=== PATIENT | female | born 1960 | race Caucasian/White ===

== ENCOUNTER → 2018-07-19 | Outpatient (CLI) | payer OTHER ==
[~2018-07-19] MED LIST: ARIP30 PO; ASCO500 PO; CALCAVITDA PO; CYCL10 PO; DULO30 PO; FISH1000 PO; HYDACE5 PO; LOXA10 PO; MULVITA PO; OXYACE7.5T PO; QUET100 PO; TETR250 PO; TOCO1000 PO; TRAZ100 PO; TRIHEXYPHENIDYL PO; VENL75ER PO; [UNRECOGNIZED DRUG - OTHER]; [UNRECOGNIZED DRUG - REMARK]
[2018-07-19 13:26] LABS: Source, Urine Clean Catch
[2018-07-19 16:39] LABS: Bilirubin, Urine Neg (Neg); Blood, Urine Neg (Neg); Glucose Qualitative, Urine Neg (Neg); Ketones, Urine Neg (Neg); Leukocyte Esterase, Urine Neg (Neg); Nitrite, Urine Neg (Neg); Protein, Urine Neg (Neg); Specific Gravity, Urine 1.005 (1.003-1.022); Urobilinogen, Urine NORM (Normal); pH, Urine 6.5 (5.0-8.0)
[2018-07-19 17:02] LABS: Appearance, Urine Clear (Clear); Color, Urine Yellow (P-Yellow)
== END | disposition home or self-care (01) ==
LOC: LAB 13:20 → LAB SHORT 13:20
PROVIDERS: Family Medicine
DX: N39.46 Mixed incontinence (principal)
CPT/HCPCS: 81003

== ENCOUNTER → 2018-10-09 | Outpatient (CLI) | payer OTHER ==
[2018-10-10 15:07] LABS: HPV 16 Negative (Negative); HPV 18 Negative (Negative); HPV OTHER HR TYPES Positive (Negative)
== END ==
LOC: LAB 10:49 → LAB SHORT 10:49
PROVIDERS: Obstetrics & Gynecology
DX: Z01.419 Encounter for gynecological examination (general) (routine) without abnormal findings (principal)
CPT/HCPCS: 87624; 87625; G0123

== ENCOUNTER → 2020-03-09 | Outpatient (CLI) | payer OTHER ==
[2020-03-10 16:10] LABS: HPV 16 Negative (Negative); HPV 18 Negative (Negative); HPV OTHER HR TYPES Positive (Negative)
== END | disposition home or self-care (01) ==
LOC: LAB SHORT 11:50 → LAB 11:50
PROVIDERS: Obstetrics & Gynecology
DX: Z01.419 Encounter for gynecological examination (general) (routine) without abnormal findings (principal)
CPT/HCPCS: 87624; 87625; G0123

== ENCOUNTER → 2020-04-14 | Outpatient (CLI) | payer OTHER | END | disposition home or self-care (01) | LOC: LAB 08:23 → LAB SHORT 08:23 | DX: R87.619 Unspecified abnormal cytological findings in specimens from cervix uteri (principal) | CPT/HCPCS: 88305 ==

== ENCOUNTER → 2020-04-22 | Outpatient (CLI) | payer OTHER | END | disposition home or self-care (01) | LOC: LAB SHORT 07:35 → PLD 07:35 | DX: R87.619 Unspecified abnormal cytological findings in specimens from cervix uteri (principal) | CPT/HCPCS: 88305 ==

== ENCOUNTER → 2021-03-29 | Outpatient (CLI) | payer OTHER ==
[2021-03-30 13:10] LABS: HPV 16 Negative (Negative); HPV 18 Negative (Negative); HPV OTHER HR TYPES Positive (Negative)
== END | disposition home or self-care (01) ==
LOC: LAB SHORT 11:59 → LAB 11:59
PROVIDERS: Obstetrics & Gynecology
DX: Z01.419 Encounter for gynecological examination (general) (routine) without abnormal findings (principal)
CPT/HCPCS: 87624; G0123

== ENCOUNTER 2021-09-20 12:03 | Day surgery (SDC) | payer OTHER ==
[~2021-09-20] VITALS: Ht 167.6 cm; Wt 74.0 kg
[2021-09-20] MEDS ORDERED: Prozac20 MG PO (12:19)
[2021-09-20] MEDS ORDERED: ALBU90OI6 INH (12:20)
[2021-09-20] MEDS ORDERED: OXYB5 PO (12:20)
--- NOTE | 2021-09-20 13:54 | NUR ---
09/20/21 1354 Andrae Freeman 0.15ML OF EPI 1MG/ML ADDED TO 30ML OF BUPIVICAINE 0.5% TO CREATE A SOLUTION OF BUPIVICAINE 0.5% WITH EPI 1:200,000.
== END 2021-09-20 15:13 | disposition home or self-care (01) ==
LOC: ORSCSDS 12:03
PROVIDERS: Orthopaedic Surgery
PROC: 0LB50ZZ Excision of Right Lower Arm and Wrist Tendon, Open Approach (ICD-10-PCS; principal; 2021-09-20 13:30)
PROC: 01N50ZZ Release Median Nerve, Open Approach (ICD-10-PCS; principal; 2021-09-20 13:30)
DX: G56.01 Carpal tunnel syndrome, right upper limb (principal); M67.431 Ganglion, right wrist; J44.9 Chronic obstructive pulmonary disease, unspecified; F32.A Depression, unspecified; F17.210 Nicotine dependence, cigarettes, uncomplicated; Z79.899 Other long term (current) drug therapy
CPT/HCPCS: 88304; J0171; J0330; J0690; J2405; J2704; J3010

== ENCOUNTER → 2022-05-19 | Outpatient (CLI) | payer OTHER ==
[~2022-05-19] MED LIST changes: +ALBU90OI6 INH; +OXYB5 PO; +Prozac20 MG PO
[2022-05-23 12:07] LABS: HPV 16 Negative (Negative); HPV 18 Negative (Negative); HPV OTHER HR TYPES Positive (Negative)
== END ==
LOC: LAB SHORT 11:38 → LAB 11:38
PROVIDERS: Obstetrics & Gynecology
DX: R87.810 Cervical high risk human papillomavirus (HPV) DNA test positive (principal)
CPT/HCPCS: 87624; 87625; G0123

== ENCOUNTER → 2022-07-07 | Outpatient (CLI) | payer OTHER | END | disposition home or self-care (01) | LOC: LAB SHORT 15:14 | DX: R87.614 Cytologic evidence of malignancy on smear of cervix (principal) | CPT/HCPCS: 88305 ==

== ENCOUNTER → 2023-09-11 | Outpatient (CLI) | payer OTHER ==
[~2023-09-11] MED LIST changes: +ANORO ELLIPTA1 EAC1 IH
[2023-09-14 11:44] LABS: Stool Occult Bld Immuno 1 Negative (NEGATIVE)
[2023-09-15 11:53] LABS: FAT, FECAL - NEUTRAL Normal (Normal); FAT, FECAL - SPLIT Normal (Normal)
== END ==
LOC: LAB 14:30 → LAB SHORT 14:30
PROVIDERS: Family Medicine
DX: R63.4 Abnormal weight loss (principal); R79.82 Elevated C-reactive protein (CRP)
CPT/HCPCS: 82705; G0328

== ENCOUNTER → 2024-03-11 | Outpatient (CLI) | payer OTHER ==
[2024-03-21 14:47] LABS: HPV HIGH RISK BY TMA Not Detected; HPV SOURCE Cervical
== END ==
LOC: LAB 17:14 → LAB SHORT 17:14
PROVIDERS: Obstetrics & Gynecology
DX: Z01.419 Encounter for gynecological examination (general) (routine) without abnormal findings (principal)
CPT/HCPCS: 87624; G0123

== ENCOUNTER 2025-03-08 13:39 | Inpatient (IN) | payer MEDICARE, OTHER ==
[~2025-03-08] VITALS: Ht 167.6 cm; Wt 52.0 kg
[2025-03-08] MEDS ORDERED: Vitamin D1000 UNI1 PO (14:41)
[2025-03-08 15:47] LABS: BASOPHILS ABSOLUTE AUTO 0.07 K/mm3 (0.00-0.23); BASOPHILS PERCENT AUTO 1 % (0-2); EOSINOPHILS ABSOLUTE AUTO 0.12 K/mm3 (0.00-0.68); EOSINOPHILS PERCENT AUTO 1 % (0-6); Hematocrit 38.0 % (33.0-51.0); Hemoglobin 12.9 g/dL (11.5-16.0); IMMATURE GRAN ABSOLUTE AUTO 0.03 K/mm3 (0.00-0.10); IMMATURE GRAN PERCENT AUTO 0 % (0-1); LYMPHOCYTES ABSOLUTE AUTO 1.76 K/mm3 (0.84-5.20); LYMPHOCYTES PERCENT AUTO 19 % (21-46); MONOCYTES ABSOLUTE AUTO 0.69 K/mm3 (0.16-1.47); MONOCYTES PERCENT AUTO 8 % (4-13); Mean Corpuscular HGB Conc 33.9 g/dL (31.5-36.5); Mean Corpuscular Volume 95 fL (80-100); NEUTROPHILS ABSOLUTE AUTO 6.40 K/mm3 (1.96-9.15); NEUTROPHILS PERCENT AUTO 71 % (41-73); NRBC ABSOLUTE 0.00 K/mm3 (0.00-0.02); NRBC Auto 0.0 /100 WBC (0.0-0.2); Platelet Count 285 K/mm3 (150-400); RDW Coefficient Variation 13.1 % (11.7-14.2); RDW Standard Deviation 45.2 fL (35.1-46.3)
[2025-03-08 16:02] LABS: Alanine Aminotransfer (ALT/SGP 30.0 U/L (12-78); Albumin, Blood 3.4 g/dL (3.4-5.0); Albumin/Globulin Ratio 1.0 (0.8-1.8); Anion Gap 4.0 mmol/L (3-11); Aspartate Aminotrans (AST/SGOT 23.0 U/L (12-37); Bilirubin, Total 0.4 mg/dL (0.1-1.0); Blood Urea Nitrogen 9.0 mg/dL (8-24); CO2, Blood 30.0 mmol/L (21-32); Calcium, Blood 8.9 mg/dL (8.5-10.1); Chloride, Blood 106.0 mmol/L (98-108); Creatinine, Blood 0.77 mg/dL (0.40-1.00); Globulin, Blood 3.4 g/dL (2.2-4.0); Glucose, Blood 96.0 mg/dL (70-99); Potassium, Blood 3.9 mmol/L (3.5-5.5); Sodium, Blood 136.0 mmol/L (136-145); Total Protein, Blood 6.8 g/dL (6.4-8.2)
[2025-03-08] MEDS ORDERED: Dexamethasone Sod Phos 10 MG/ML 1ML VIAL IV ONE (19:35)
[2025-03-08] MEDS ORDERED: Magnesium Hydroxide Conc 10 ML UDC PO PRN (20:30)
[2025-03-08] MEDS ORDERED: Albuterol HFA200 ACT/6.7 GM INH INH PRN (20:50)
[2025-03-08] MEDS ORDERED: Ipratropium/Albuterol SulF 2.5-0.5MG/3 ML Amp INH SCH (20:50)
[2025-03-08] MEDS ORDERED: PREG50 PO (20:52)
[2025-03-08] MEDS ORDERED: Trihexyphenidyl5 MG PO (20:53)
[2025-03-08] MEDS ORDERED: TRAM50 PO (20:55)
[2025-03-08] MEDS ORDERED: Cholecalciferol 1000 Unit Tablet (=25MCG) PO SCH (21:00)
[2025-03-08] MEDS ORDERED: Lactobacil 2-S.Thermo-Bifido 1 1 Cap PO SCH (21:00)
[2025-03-08] MEDS ORDERED: Trihexyphenidyl HCL 2 MG Tab PO SCH (21:00)
[2025-03-08 21:31] VITALS: BP 134/70
[2025-03-09 03:54] VITALS: BP 96/66
[2025-03-09 08:10] VITALS: BP 128/79
[2025-03-09] MEDS ORDERED: Multivitamins 1 Tab PO SCH (09:00)
[2025-03-09] MEDS ORDERED: Omega-3 Acid Ethyl Esters 1,000 MG CAP PO SCH (09:00)
[2025-03-09] MEDS ORDERED: Docusate Sodium/Senna 1 Tab PO PRN (12:15)
--- NOTE | 2025-03-09 13:31 | NUR ---
SHIFT SUMMARY PATIENT RECEIVED MRI, TOLERATED WELL. GENERALIZED WEAKNESS. REPORTS NUMBNESS BILATERAL HANDS AND WEAKNESS IN BILATERAL LEGS. ABLE TO USE BSC WITH 1 ASSIST AND GAIT BELT. A/O X4. VSS. CALL LIGHT IN REACH, ABLE TO MAKE NEEDS KNOWN.
[2025-03-09 15:09] VITALS: BP 100/79
[2025-03-09 19:24] VITALS: BP 109/78
[2025-03-09] MEDS ORDERED: Heparin Sodium,Porcine 5,000 UNIT/0.5 ML SDV SC SCH (21:00)
--- NOTE | 2025-03-10 00:15 | NUR ---
REPORT RECEIVED FROM CINDY AND ASSUMED CARE OF PT AT THIS TIME. PT RESTING W/O S/S DISTRESS AND I AGREE TO HER NOCTE SHIFT ASSESSMENT FINDINGS.
[2025-03-10 02:22] VITALS: BP 102/64
[2025-03-10 05:43] LABS: BASOPHILS ABSOLUTE AUTO 0.03 K/mm3 (0.00-0.23); BASOPHILS PERCENT AUTO 0 % (0-2); EOSINOPHILS ABSOLUTE AUTO 0.02 K/mm3 (0.00-0.68); EOSINOPHILS PERCENT AUTO 0 % (0-6); Hematocrit 39.5 % (33.0-51.0); Hemoglobin 13.8 g/dL (11.5-16.0); IMMATURE GRAN ABSOLUTE AUTO 0.06 K/mm3 (0.00-0.10); IMMATURE GRAN PERCENT AUTO 0 % (0-1); LYMPHOCYTES ABSOLUTE AUTO 0.81 K/mm3 (0.84-5.20); LYMPHOCYTES PERCENT AUTO 6 % (21-46); MONOCYTES ABSOLUTE AUTO 0.55 K/mm3 (0.16-1.47); MONOCYTES PERCENT AUTO 4 % (4-13); Mean Corpuscular HGB Conc 34.9 g/dL (31.5-36.5); Mean Corpuscular Volume 93 fL (80-100); NEUTROPHILS ABSOLUTE AUTO 12.33 K/mm3 (1.96-9.15); NEUTROPHILS PERCENT AUTO 89 % (41-73); NRBC ABSOLUTE 0.00 K/mm3 (0.00-0.02); NRBC Auto 0.0 /100 WBC (0.0-0.2); Platelet Count 300 K/mm3 (150-400); RDW Coefficient Variation 13.2 % (11.7-14.2); RDW Standard Deviation 45.2 fL (35.1-46.3)
[2025-03-10 06:13] LABS: Alanine Aminotransfer (ALT/SGP 27.0 U/L (12-78); Albumin, Blood 3.3 g/dL (3.4-5.0); Albumin/Globulin Ratio 0.9 (0.8-1.8); Anion Gap 10.0 mmol/L (3-11); Aspartate Aminotrans (AST/SGOT 20.0 U/L (12-37); Bilirubin, Total 0.4 mg/dL (0.1-1.0); Blood Urea Nitrogen 13.0 mg/dL (8-24); CO2, Blood 25.0 mmol/L (21-32); Calcium, Blood 8.6 mg/dL (8.5-10.1); Chloride, Blood 107.0 mmol/L (98-108); Creatinine, Blood 0.61 mg/dL (0.40-1.00); Globulin, Blood 3.8 g/dL (2.2-4.0); Glucose, Blood 139.0 mg/dL (70-99); Potassium, Blood 4.1 mmol/L (3.5-5.5); Sodium, Blood 138.0 mmol/L (136-145); Total Protein, Blood 7.1 g/dL (6.4-8.2)
--- NOTE | 2025-03-10 07:14 | NUR ---
SUMMARY: PT A/OX4, CALLS APPROPRIATELY TO SPECIFY NEEDS AND IS PLEASANT AND COOPERATIVE W/CARE. SHE'S UP W/SBA D/T UNSTEADY GAIT AND WEAKNESS. PT REPORTS NUMBNESS/TINGLING TO BUE'S BUT DENIED SENSATION ABNORMALITY TO BLE'S THIS AM. CLINDAMYCIN BEING RECEIVED FOLLOWING RECENT DENTAL WORK. PT WOULD LIKE PHYSICIAN TO DISCUSS MRI RESULTS W/HER AND PLAN OF CARE. DAY RN MADE AWARE. NO ACUTE CHANGES, VSS/AFEBRILE. REPORT PROVIDED TO DAY RN.
[2025-03-10 07:48] VITALS: BP 127/74
[2025-03-10 13:49] VITALS: BP 127/74
[2025-03-10 14:52] VITALS: BP 127/74
--- NOTE | 2025-03-10 15:09 | NUR ---
DISCHARGE/TRANSFER PT TO BE GOING TO [facility] FOR PROCEDURE. PT AOX4, COOPERATIVE, ABLE TO MAKE NEEDS KNOWN. PT IS SBA FOR AMBULATION. ON ROOM AIR. TOLERATING MEDICATION. TRANPORTATION ARRIVED FOR PT SHORTLY AFTER THIS RN WAS TOLD TRANPORT WAS SET UP. THIS RN ATTEMPTED TO CALL TO GIVE REPORT TO RN AT [facility], WAS ON HOLD FOR ABOUT 10 MINS, BOAT JOINER INFORMED THIS RN TO HANG UP. BOAT JOINER TALKED WITH [facility] BOAT JOINER "DALTON" AND INFORMED THIS RN THAT "MORGAN" WOULD BE TAKING PT, AND THEY WOULD CALL FOR REPORT WHEN THEY GET A CHANCE.
== END 2025-03-10 15:15 | disposition short-term general hospital (02) | DRG 552 ==
LOC: ER 13:39 → MEDS 13:40
PROVIDERS: Emergency Medicine; ADMIT Internal Medicine
DX: M47.022 Vertebral artery compression syndromes, cervical region (principal); F12.90 Cannabis use, unspecified, uncomplicated; F20.9 Schizophrenia, unspecified; R26.89 Other abnormalities of gait and mobility; Z88.8 Allergy status to other drugs, medicaments and biological substances; Z79.899 Other long term (current) drug therapy; Z79.51 Long term (current) use of inhaled steroids; Z90.721 Acquired absence of ovaries, unilateral; Z90.49 Acquired absence of other specified parts of digestive tract; Z98.890 Other specified postprocedural states; Z98.1 Arthrodesis status; Z90.89 Acquired absence of other organs
CPT/HCPCS: 36415; 70450; 72125; 72141; 80053; 85025; 94640; 94664; 94760; 96374; 99285-25; A9270; G0378; J1100; J1644